=== PATIENT | male | born 1980 | race Caucasian/White ===

== ENCOUNTER 2023-10-10 09:11 | Outpatient (CLI) | payer OTHER | END 2023-10-10 09:12 | disposition home or self-care (01) | LOC: SCSMRI 09:11 | PROVIDERS: ATTEND Nurse Practitioner Family | DX: R16.0 Hepatomegaly, not elsewhere classified (principal); D18.03 Hemangioma of intra-abdominal structures; K76.0 Fatty (change of) liver, not elsewhere classified | CPT/HCPCS: 74183 ==